=== PATIENT | female | born 1955 | race Caucasian/White ===

== ENCOUNTER 2016-09-14 06:25 | Day surgery (SDC) | payer BC ==
[2016-09-09 10:01] VITALS: BMI 24.2
[~2016-09-14 06:25] MED LIST: ALPRAZolam 0.25 MG TAB PO PRN; ALPRAZolam 0.5 MG TAB PO PRN; ASPIRIN 325 MG TAB PO STA; ATORVASTATIN 80 MG TAB PO STA; NITROGLYCERIN SL TABS 0.4 MG TAB SUBLINGUAL PRN; SODIUM CHLORIDE 0.9% 1,000 ML in EMPTY BAG 1 BAG IV ONE
[2016-09-14 07:17] VITALS: PULSE 64; RESP 20; TEMP 98
[2016-09-14] MEDS ORDERED: METOPROLOL TARTRATE 5 MG/5 ML VIAL IVP ONE ×2 (07:25→07:30)
[2016-09-14] MEDS ORDERED: MIDAZOLAM 2 MG/2 ML VIAL IVP ONE (07:33)
[2016-09-14] MEDS ORDERED: fentaNYL (PF) 50 MCG/ML 2 ML AMP IV ONE (07:35)
[2016-09-14] MEDS ORDERED: LIDOCAINE 2% INJ 20 MG/ML SQ ONE (07:38)
[2016-09-14] MEDS ORDERED: IOHEXOL 350 MG/ML 100 ML BOTTLE INJ ONE (07:51)
[2016-09-14] MEDS ORDERED: RX INFO: IV CONTRAST WAS GIVEN 1 EACH MISC MISCELLANE PRN (08:08)
--- NOTE | 2016-09-14 08:08 | P.PCN ---
Date of Procedure: 09/14/16 Preoperative Diagnosis: Unstable angina Postoperative Diagnosis: Normal coronary arteries Procedure(s) Performed: Left heart catheterization and left ventriculography Description of Procedure: HISTORY: This is a 61-year-old female with history of hypertensive cardiac vascular disease and hyperlipidemia who was recently seen in the office with complaints of prolonged chest pain relieved with nitroglycerin. Her EKGs did not reveal any acute changes. Because of recurrent chest pains relieved with nitroglycerin, patient is advised to have a cardiac catheterization or a stress test for definitive diagnosis. Patient preferred to have a cardiac catheterization. CONSENT:I have discussed the risks, benefits and alternative therapies for the above-mentioned procedure and for both sedation/analgesia as well as necessary blood product administration, if indicated, as they pertain to this patient. The patient has indicated understanding and acceptance of the risks and procedures discussed. PROCEDURE: Patient was brought to the lab in a fasting state. Patient was given some IV sedation. The right groin is infiltrated with lidocaine and right femoral artery was entered using Seldinger technique. A 6-[place] catheter was left in place and selective coronary arteriography and left ventriculography was performed. Patient tolerated the procedure well. Femoral angiogram was performed and Angio-Seal was applied for hemostasis. No immediate complications were noted and patient was transferred to [facility] in a stable condition HEMODYNAMICS: The aortic pressure is 140/70. Left ankle end-diastolic pressure is 20. There was no gradient across the aortic valve SELECTIVE CORONARY ARTERIOGRAPHY: LEFT MAIN: Short and divides immediately into left anterior descending and circumflex. THE LEFT ANTERIOR DESCENDING CORONARY ARTERY: This is a good caliber vessel which wraps around the apex. It gives rise to several septal and diagonal branches. There is mild catheter induced spasm in the proximal LAD but otherwise no significant occlusive disease THE LEFT CIRCUMFLEX AND IS CORONARY ARTERY: This is a moderate caliber vessel and free of any occlusive disease THE RIGHT CORONARY ARTERY: This is a dominant vessel and tortuous in its course. Gives rise good-sized COLLEEN and PLV. Free of any occlusive disease. LEFT VENTRICULOGRAPHY: This was performed 30 right and [place] but projection which revealed normal-sized cardiac silhouette with good systolic function. FINAL IMPRESSION: Normal coronary arteries. Normal LV function PLAN: Maximum medical therapy PROGNOSIS: Fair
[2016-09-14] MEDS ORDERED: SODIUM CHLORIDE 0.9% 1,000 ML IV SCH (08:15)
[2016-09-14 14:27] VITALS: BP 147/79
== END 2016-09-14 14:10 | disposition home or self-care (01) ==
LOC: CATHCVL 06:25
PROVIDERS: ATTEND Internal Medicine Cardiovascular Disease
DX: I25.110 Atherosclerotic heart disease of native coronary artery with unstable angina pectoris (principal); I11.9 Hypertensive heart disease without heart failure; I73.9 Peripheral vascular disease, unspecified; E78.5 Hyperlipidemia, unspecified; E78.00 Pure hypercholesterolemia, unspecified; Z82.49 Family history of ischemic heart disease and other diseases of the circulatory system; Z79.899 Other long term (current) drug therapy; Z87.891 Personal history of nicotine dependence
CPT/HCPCS: 93458

== ENCOUNTER → 2017-03-18 | Outpatient (CLI) | payer BC ==
--- NOTE | 2017-03-21 10:17 | MM ---
Reason for exam: screening (asymptomatic). Last mammogram was performed 1 year ago. History: Patient is postmenopausal, has history of other cancer at age 55, and is nulliparous. Family history of breast cancer in mother at age 63. 2 excisional biopsies of the right breast. Physical Findings: A clinical breast exam by your physician is recommended on an annual basis and results should be correlated with mammographic findings. MG Screening Mammo w CAD Bilateral CC and MLO view(s) were taken. Prior study comparison: March 03, 2016, bilateral MG screening mammo w CAD. February 04, 2015, bilateral MG screening mammo w CAD. The breast tissue is extremely dense which could obscure a lesion on mammography. There is no discrete abnormality. No significant changes when compared with prior studies. ASSESSMENT: Negative, BI-RAD 1 RECOMMENDATION: Routine screening mammogram of both breasts in 1 year.
== END | disposition home or self-care (01) ==
LOC: RADMAMWWP 07:20
PROVIDERS: ATTEND Family Medicine
DX: Z12.31 Encounter for screening mammogram for malignant neoplasm of breast (principal); Z80.3 Family history of malignant neoplasm of breast

== ENCOUNTER → 2017-04-26 | Outpatient (CLI) | payer BC ==
--- NOTE | 2017-04-26 09:53 | US ---
EXAMINATION TYPE: US abdomen complete DATE OF EXAM: 04/26/2017 COMPARISON: NONE CLINICAL HISTORY: R19.07 Generalized intra-abdominal and pelvic swel. EXAM MEASUREMENTS: Liver Length: 10.3 cm Gallbladder Wall: 0.2 cm CBD: 0.5 cm Spleen: 9.6 cm Right Kidney: 10.6 x 4.4 x 5.5 cm Left Kidney: 11.0 x 5.3 x 4.4 cm Pancreas: wnl Liver: wnl Gallbladder: wnl Evidence for sonographic Collins's sign: no CBD: wnl Spleen: wnl Right Kidney: wnl Left Kidney: Superior pole obscured by bowel gas Upper IVC: wnl Abd Aorta: Bifurcation obscured by overlying bowel gas The liver is homogenous. The intrahepatic portion of the IVC and proximal abdominal aorta are within normal limits. There is no evidence of cholelithiasis. Common bile duct is unremarkable. The visu alized portions of the pancreas are homogenous. The spleen is unremarkable. Kidneys are symmetric a nd free of hydronephrosis. No renal lesions are seen. IMPRESSION: No discrete abnormality appreciated.
== END | disposition home or self-care (01) ==
LOC: RADUSWWP 08:57
PROVIDERS: ATTEND Family Medicine
DX: R19.07 Generalized intra-abdominal and pelvic swelling, mass and lump (principal)
CPT/HCPCS: 76700

== ENCOUNTER 2018-02-01 08:31 | Inpatient (IN) | payer BC ==
[2018-02-01] MEDS ORDERED: DILTIAZEM 5 MG/1 ML (25ML VIAL) IV ONE (09:55)
[2018-02-01] MEDS ORDERED: DILTIAZEM 5 MG/ML 5 ML VIAL ONE (09:55)
[2018-02-01] MEDS ORDERED: SODIUM CHLORIDE 0.9% 1,000 ML BAG ONE (09:55)
[2018-02-01] MEDS ORDERED: SODIUM CHLORIDE 0.9% 100 ML BAG ONE (09:55)
[2018-02-01 13:43] LABS: D-Dimer <0.17 mg/L FEU (<0.60); Partial Thromboplastin Time 26.2 sec (22.0-30.0); Prothrombin Time 9.7 sec (9.0-12.0)
[2018-02-01 13:57] LABS: Basophils # (A) 0.1 k/uL (0-0.2); Basophils % (A) 1 %; Eosinophils # (A) 0.1 k/uL (0-0.7); Eosinophils % (A) 1 %; HCT 44.6 % (34.0-46.0); HGB 15.5 gm/dL (11.4-16.0); Lymphocytes # (A) 1.8 k/uL (1.0-4.8); Lymphocytes % (A) 20 %; MCH 31.5 pg (25.0-35.0); MCHC 34.7 g/dL (31.0-37.0); MCV 90.7 fL (80.0-100.0); Mean Platelet Volume 6.9; Monocytes # (A) 0.6 k/uL (0-1.0); Monocytes % (A) 6 %; Neutrophils # (A) 6.3 k/uL (1.3-7.7); Neutrophils % (A) 70 %; Platelet Count 258 k/uL (150-450); RBC 4.92 m/uL (3.80-5.40); RDW 13.2 % (11.5-15.5); WBC 8.9 k/uL (3.8-10.6)
[2018-02-01 15:07] LABS: ALT 44 U/L (9-52); AST 31 U/L (14-36); Albumin 4.9 g/dL (3.5-5.0); Alkaline Phosphatase 95 U/L (38-126); Anion Gap 13 mmol/L; Blood Urea Nitrogen 23 mg/dL (7-17); Carbon Dioxide 23 mmol/L (22-30); Chloride 105 mmol/L (98-107); Glucose 158 mg/dL (74-99); Magnesium 2.2 mg/dL (1.6-2.3); Phosphorus 3.1 mg/dL (2.5-4.5); Potassium 4.6 mmol/L (3.5-5.1); Sodium 141 mmol/L (137-145); Total Bilirubin 0.8 mg/dL (0.2-1.3); Total Protein 7.3 g/dL (6.3-8.2)
[2018-02-01 15:08] LABS: Creatine Kinase 57 U/L (30-135); Troponin I <0.012 ng/mL (0.000-0.034)
[2018-02-01 15:34] LABS: T4, Free (Free Thyroxine) 1.75 ng/dL (0.78-2.19)
--- NOTE | 2018-02-01 15:53 | XR ---
2 view chest x-ray HISTORY: Tachycardia, hypertension 2 views of the chest No comparisons There is no evident airspace disease, pneumothorax, or pleural effusion. Azygos fissure noted inciden tally. Patient is rotated. Cardiomediastinal silhouette, pulmonary vascularity and shmuel within normal limits. There are overlying cardiac leads. IMPRESSION: No acute cardiopulmonary disease.
[2018-02-01] MEDS: DILTIAZEM 50 MG in SODIUM CHLORIDE 0.9% 40 ML IV SCH (20:05)
[2018-02-01] MEDS: SODIUM CHLORIDE 0.9% 1,000 ML IV SCH (20:06)
[2018-02-01 20:41] LABS: Creatine Kinase MB 1.4 ng/mL (0.0-2.4)
[2018-02-01] MEDS ORDERED: HEPARIN SODIUM,PORCINE 5,000 UNIT/ML 1 ML VIAL IV PRN (22:18)
[2018-02-01] MEDS ORDERED: HEPARIN SODIUM,PORCINE 5,000 UNIT/ML 1 ML VIAL IV ONE (22:18)
[2018-02-01] MEDS ORDERED: HEPARIN SOD,PORK IN 0.45% NACL 25,000 UNIT in 0.45% NACL 1 500ML.BAG IV SCH (22:30)
[2018-02-02] MEDS ORDERED: HEPARIN SODIUM,PORCINE 5,000 UNIT/ML 1 ML VIAL SQ SCH
[2018-02-02 03:14] LABS: Creatine Kinase 35 U/L (30-135)
[2018-02-02 03:23] LABS: Creatine Kinase MB 1.2 ng/mL (0.0-2.4); Troponin I <0.012 ng/mL (0.000-0.034)
[2018-02-02] MEDS: SODIUM CHLORIDE 0.9% 1,000 ML IV SCH ×3 (05:13→15:34)
[2018-02-02] MEDS: DILTIAZEM 50 MG in SODIUM CHLORIDE 0.9% 40 ML IV SCH ×3 (05:14→22:47)
[2018-02-02] MEDS: LEVOTHYROXINE 112 MCG TAB PO SCH (06:08)
[2018-02-02 06:27] LABS: Basophils # (A) 0.1 k/uL (0-0.2); Basophils % (A) 1 %; Eosinophils # (A) 0.1 k/uL (0-0.7); Eosinophils % (A) 1 %; HCT 41.3 % (34.0-46.0); HGB 14.5 gm/dL (11.4-16.0); Lymphocytes % (A) 26 %; MCH 31.6 pg (25.0-35.0); MCHC 35.1 g/dL (31.0-37.0); MCV 90.2 fL (80.0-100.0); Monocytes # (A) 0.5 k/uL (0-1.0); Monocytes % (A) 6 %; Neutrophils # (A) 5.2 k/uL (1.3-7.7); Neutrophils % (A) 65 %; Platelet Count 193 k/uL (150-450); RBC 4.58 m/uL (3.80-5.40); RDW 13.6 % (11.5-15.5)
[2018-02-02 06:44] LABS: Blood Urea Nitrogen 10 mg/dL (7-17); Calcium 9.9 mg/dL (8.4-10.2); Carbon Dioxide 23 mmol/L (22-30); Chloride 110 mmol/L (98-107); Glucose 120 mg/dL (74-99); Potassium 4.1 mmol/L (3.5-5.1)
[2018-02-02 06:56] LABS: Anion Gap 10 mmol/L; Sodium 143 mmol/L (137-145)
[2018-02-02] MEDS: ASPIRIN 81 MG PO SCH (08:37)
[2018-02-02] MEDS ORDERED: NON-FORMULARY DRUG (Omega-3 Fatty Acids/Fish Oil [Fish Oil 1,000 Mg Softgel] 1 EACH) PO SCH (09:00)
[2018-02-02] MEDS ORDERED: NON-FORMULARY DRUG (Krill Oil [Krill Oil] 500 MG) PO SCH (09:00)
--- NOTE | 2018-02-02 09:19 | P.HPIM ---
History of Present Illness H&P Date: 02/01/18 62-year-old female who presented to the emergency room with a chief complaint of chest discomfort and a vague complaint of "just not feeling right" . Patient denied shortness of breath or cough. Denied recent URI. Denied nausea or vomiting. Denied lightheadedness or dizziness. The patient underwent cardiac catheterization in September [address] Nelson which revealed normal coronary arteries and normal LV function. The patient has a history of thyroid cancer with thyroidectomy and radiation treatment. The patient is a former cigarette smoker and quit smoking in 1997 after smoking for 20 years. The patient reports daily alcohol use and reports drinking 2 vodka drinks a night. Chest x-ray was performed which was negative for an acute process. Twelve-lead EKG revealed atrial fibrillation with rapid ventricular response. Laboratory results revealed WBC 8.9. Hemoglobin 15.5. Platelet count 250. INR 1.0. D-dimer less than 0.17. Sodium 141. Potassium 4.6. BUN 23. Creatinine 0.70. Glucose 158. Magnesium 2.2. Troponins negative 3. TSH 0.043. Free T4 1 0.75. The patient was placed on a Cardizem drip and a heparin drip. The patient was admitted to the hospital under the care of Dr. Mcmahon. Consultations were placed to cardiology. Review of Systems Those systems with pertinent positive or pertinent negative responses have been documented in the HPI Past Medical History Past Medical History: Cancer, Chest Pain / Angina, Thyroid Disorder Additional Past Medical History / Comment(s): hx. thyroid cancer 2010-had radiation after surgery, see Dr Nelson H & P History of Any Multi-Drug Resistant Organisms: None Reported Past Surgical History: Hysterectomy, Joint Replacement, Orthopedic Surgery, Tonsillectomy Additional Past Surgical History / Comment(s): thyroidectomy, left knee replaced , left wrist ORIF Past Anesthesia/Blood Transfusion Reactions: No Reported Reaction Smoking Status: Former smoker - Past Family History Mother Family Medical History: Cancer Father Family Medical History: Cancer Medications and Allergies Home Medications Medication Instructions Recorded Confirmed Type Aspirin 81 mg PO DAILY 09/09/16 02/01/18 History Levothyroxine Sodium [Synthroid] 112 mcg PO DAILY 09/09/16 02/01/18 History [place]-3 Fatty Acids/Fish Oil [Fish 1 each PO DAILY 09/09/16 02/01/18 History Oil 1,000 mg Softgel] Krill Oil 500 mg PO DAILY 02/01/18 02/01/18 History Apixaban [Eliquis] 5 mg PO BID #60 tab 02/03/18 Rx Allergies Allergy/AdvReac Type Severity Reaction Status Date / Time No Known Allergies Allergy Verified 02/01/18 11:40 Physical Exam GENERAL: This is a 62-year-old in no apparent distress at the time of examination. Pleasant and cooperative. HEENT: Head is atraumatic, normocephalic. Pupils are equal, round, and reactive to light. Sclerae anicteric. Conjunctivae are clear. Mucus membranes of the mouth are moist. Neck is supple. RESPIRATORY: Clear to ausculation. No wheezes, rales, or rhonchi. No use of accessory muscles. Patient maintaining oxygen saturation greater than 92%. CARDIOVASCULAR: Irregular rate and rhythm. Tachycardic. statistician theoretical reveals A. fib with RVR. S1 and S2 noted. No systolic or diastolic murmur auscultated. No JVD noted. No S3 or S4 noted. GASTROINTESTINAL: No distention noted. Abdomen soft and round. Normal active bowel sounds auscultated x 4 quadrants. INTEGUMENTARY: No cyanosis. No jaundice. No rashes noted. No cellulitis noted. EXTREMITIES: 2+ peripheral pulses. No evidence of peripheral edema. No calf tenderness noted. NEUROLOGIC: Cranial nerves II-XII intact. PSYCHIATRIC: Awake, alert, and oriented X 3. Appropriate affect. Intact judgement and insight. Results CBC & Chem 7: 02/02/18 05:57 02/02/18 05:57 Assessment and Plan Plan: ASSESSMENT: New onset atrial fibrillation with rapid ventricular response History of thyroid cancer s/p thyroidectomy and radiation treatment History of nicotine dependence, in remission, patient quit smoking in 1997 after smoking for 20 years Daily alcohol use, patient reports consuming two alcoholic drinks per night PLAN: Cardiology on consult. Appreciate recommendations and input Continue Cardizem drip and heparin drip per cardiology Continue to monitor telemetry Home meds as appropriate Monitor labs GI prophylaxis: Protonix 40 mg PO Daily DVT prophylaxis: Patient currently on heparin drip Monitor vital signs and address as appropriate Discharge planning: Patient to return home when stable Further recommendations pending patient's course Nurse practitioner note has been reviewed by physician. Signing provider agrees with the documented findings, assessment, and plan of care.
[2018-02-02] MEDS ORDERED: PROPAFENONE 150 MG TAB PO STA (10:23)
--- NOTE | 2018-02-02 11:03 | CONS ---
CONSULTATION CHIEF COMPLAINT: Palpitations. 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 While at work, she had palpitations and was found to be in a atrial fibrillation and sent to hospital. She has been treated with intravenous heparin and IV Cardizem. At the time of my evaluation, her heart rate is well controlled and she is otherwise stable and free of symptoms. The patient has history of ETOH abuse. She has 2 alcohol drinks every day. Her TSH is low but the T4 is within normal limits. PAST MEDICAL HISTORY: Negative for hypertension, diabetes, congestive heart failure, cardiomyopathy, ischemic heart disease or prior CVA. It is significant for hypothyroidism. MEDICATIONS: At home included fish oil, Krill oil, Synthroid, and aspirin. ALLERGIES: There are no known drug allergies. FAMILY HISTORY: Negative for premature coronary artery disease. SOCIAL HISTORY: Negative for current smoking, EtOH abuse, or drug abuse. REVIEW OF SYSTEMS: HEENT is unremarkable. CARDIAC: As described above. RESPIRATORY: Negative. GI: Negative. GENITOURINARY: Negative. ALLERGY/IMMUNOLOGY: Negative. SKIN: Negative. MUSCULOSKELETAL: Negative. ENDOCRINE: Negative. CONSTITUTIONAL: Negative. ONCOLOGICAL: Negative. Rest of the system review is not relevant. PHYSICAL EXAM: She is comfortable at rest. Vital signs are stable. There is no jugular venous distention. Carotid upstroke is normal. There is no bruit. Chest exam reveals diminished air entry at the bases. Heart exam reveals first and second heart sounds. No gallop. Irregular rhythm. No murmur. Abdomen is soft, nontender. Exam of extremities did not reveal any edema. Peripheral pulses are felt, LABS: Show that the D-dimer is normal. Hemoglobin is 14.5, platelet count is 193. Potassium is 4.1. Three sets of tropes are negative. Free T4 is normal. TSH is 0.043. ASSESSMENT: Persistent atrial fibrillation with poorly controlled ventricular rate. PLAN: I am going to talk to Dr. Nelson who has performed a cardiac catheterization on her a year ago which was normal. I will ask him to do a BRIELLE cardioversion on her. I will obtain a 2D echo in the meantime. MMODL / IJN: [id number] /
--- NOTE | 2018-02-02 12:51 | ECHOF ---
Referral Reason:afib MEASUREMENTS -------- HEIGHT: 165.1 cm WEIGHT: 64.0 kg BP: 126/90 IVSd: 0.9 cm (0.6 - 1.1) LVIDd: 4.1 cm (3.9 - 5.3) LVPWd: 1.2 cm (0.6 - 1.1) IVSs: 1.2 cm LVIDs: 3.1 cm LVPWs: 1.4 cm LA Diam: 3.0 cm (2.7 - 3.8) LAESV Index (A-L): 29.13 ml/m Ao Diam: 2.8 cm (2.0 - 3.7) AV Cusp: 1.7 cm (1.5 - 2.6) LA Diam: 2.9 cm (2.7 - 3.8) MV EXCURSION: 21.996 mm (> 18.000) MV EF SLOPE: 152 mm/s (70 - 150) EPSS: 0.2 cm MV E Kwabena: 0.66 m/s MV DecT: 120 ms MV A Kwabena: 0.05 m/s MV E/A Ratio: 13.41 RAP: 5.00 mmHg RVSP: 20.32 mmHg FINDINGS -------- Atrial fibrillation. This was a technically good study. LV size, wall thickness and systolic function are normal, with an EF greater than 55%. The left kath tricular size is normal. The right ventricle is normal in size. The left atrial size is normal. The right atrial size is normal. The aortic valve is trileaflet, and appears structurally normal. No aortic stenosis or regurgitation. Mild mitral regurgitation is present. Mild tricuspid regurgitation present. There is no evidence of pulmonary hypertension. The right v entricular systolic pressure, as measured by Doppler, is 20.32mmHg. There is no pulmonic regurgitation present. The aortic root size is normal. There is no pericardial effusion. CONCLUSIONS -------- 1. LV size, wall thickness and systolic function are normal, with an EF greater than 55%. 2. The left ventricular size is normal. 3. The right ventricle is normal in size. 4. The left atrial size is normal. 5. The right atrial size is normal. 6. The aortic valve is trileaflet, and appears structurally normal. No aortic stenosis or regurgitati on. 7. Mild mitral regurgitation is present. 8. Mild tricuspid regurgitation present. 9. There is no evidence of pulmonary hypertension. 10. The right ventricular systolic pressure, as measured by Doppler, is 20.32mmHg. 11. There is no pulmonic regurgitation present. 12. The aortic root size is normal. 13. There is no pericardial effusion. OD GRINDER OPERATOR: Rosi Winters RDCS
--- NOTE | 2018-02-02 14:22 | P.PN ---
Subjective Progress Note Date: 02/02/18 62-year-old who presented to the emergency room with a chief complaint of chest discomfort and a vague complaint of "just not feeling right" . Patient denied shortness of breath or cough. Denied recent URI. Denied nausea or vomiting. Denied lightheadedness or dizziness. The patient underwent cardiac catheterization in September [address] Nelson which revealed normal coronary arteries and normal LV function. The patient has a history of thyroid cancer with thyroidectomy and radiation treatment. The patient is a former cigarette smoker and quit smoking in 1997 after smoking for 20 years. The patient reports daily alcohol use and reports drinking 2 vodka drinks a night. Chest x-ray was performed which was negative for an acute process. Twelve-lead EKG revealed atrial fibrillation with rapid ventricular response. Laboratory results revealed WBC 8.9. Hemoglobin 15.5. Platelet count 250. INR 1.0. D-dimer less than 0.17. Sodium 141. Potassium 4.6. BUN 23. Creatinine 0.70. Glucose 158. Magnesium 2.2. Troponins negative 3. TSH 0.043. Free T4 1 0.75. The patient was placed on a Cardizem drip and a heparin drip. The patient was admitted to the hospital under the care of Dr. Mcmahon. Consultations were placed to cardiology. 02/02/2018 Patient seen and examined at the bedside. Patient remains in a-fib. Rate is controlled. Patient is scheduled for BRIELLE tomorrow. She remains on a Cardizem drip and Heparin drip. Patient denies shortness of breath. Denies cough. Denies chest pain or pressure. Objective - Vital Signs Vital signs: Vital Signs Temp 97.8 F 02/02/18 08:30 Pulse 87 02/02/18 08:30 Resp 16 02/02/18 08:30 BP 144/74 02/02/18 08:30 Pulse Ox 95 02/02/18 08:30 Intake & Output 02/01/18 02/02/18 02/02/18 18:59 06:59 18:59 Intake Total 45.75 Balance 45.75 Weight 64.1 kg Intake: Intake, IV Titration 45.75 Amount Diltiazem 50 mg In Sodium 45.75 Chloride 0.9% 40 ml @ 5 MG/HR 5 mls/hr IV .Q10H [facility] Rx#:[id number] Other: Voiding Method Toilet # Voids 1 - Exam GENERAL: This is a 62-year-old in no apparent distress at the time of examination. Pleasant and cooperative. HEENT: Head is atraumatic, normocephalic. Pupils are equal, round, and reactive to light. Sclerae anicteric. Conjunctivae are clear. Mucus membranes of the mouth are moist. Neck is supple. RESPIRATORY: Clear to ausculation. No wheezes, rales, or rhonchi. No use of accessory muscles. Patient maintaining oxygen saturation greater than 92%. CARDIOVASCULAR: Irregular rate and rhythm. network management specialist reveals A. fib. S1 and S2 noted. No systolic or diastolic murmur auscultated. No JVD noted. No S3 or S4 noted. GASTROINTESTINAL: No distention noted. Abdomen soft and round. Normal active bowel sounds auscultated x 4 quadrants. INTEGUMENTARY: No cyanosis. No jaundice. No rashes noted. No cellulitis noted. EXTREMITIES: 2+ peripheral pulses. No evidence of peripheral edema. No calf tenderness noted. NEUROLOGIC: Cranial nerves II-XII intact. PSYCHIATRIC: Awake, alert, and oriented X 3. Appropriate affect. Intact judgement and insight. - Labs CBC & Chem 7: 02/02/18 05:57 02/02/18 05:57 Labs: Abnormal Lab Results - Last 24 Hours (Table) 02/01/18 02/02/18 02/02/18 Range/Units 08:59 05:57 05:57 APTT 61.2 H (22.0-30.0) sec Chloride 110 H (98-107) mmol/L BUN 23 H (7-17) mg/dL Glucose 158 H 120 H (74-99) mg/dL Calcium 11.0 H (8.4-10.2) mg/dL TSH 0.043 L (0.465-4.680) mIU/L Assessment and Plan Plan: ASSESSMENT: New onset atrial fibrillation with rapid ventricular response History of thyroid cancer s/p thyroidectomy and radiation treatment History of nicotine dependence, in remission, patient quit smoking in 1997 after smoking for 20 years Daily alcohol use, patient reports consuming two alcoholic drinks per night PLAN: Cardiology on consult. Appreciate recommendations and input Patient to undergo BRIELLE cardioversion Continue to monitor telemetry Home meds as appropriate Monitor labs GI prophylaxis: Protonix 40 mg PO Daily DVT prophylaxis: Patient currently on heparin drip Monitor vital signs and address as appropriate Discharge planning: Patient to return home when stable Further recommendations pending patient's course Nurse practitioner note has been reviewed by physician. Signing provider agrees with the documented findings, assessment, and plan of care.
[2018-02-02] MEDS: APIXABAN 5 MG TAB PO SCH ×2 (14:25→21:32)
[2018-02-02] MEDS: PROPAFENONE 150 MG TAB PO SCH ×2 (15:45→21:32)
[2018-02-03] MEDS: SODIUM CHLORIDE 0.9% 1,000 ML IV SCH ×2 (06:01→09:13)
[2018-02-03] MEDS: LEVOTHYROXINE 112 MCG TAB PO SCH (06:01)
[2018-02-03] MEDS: ASPIRIN 81 MG PO SCH (08:02)
[2018-02-03] MEDS: APIXABAN 5 MG TAB PO SCH (08:02)
[2018-02-03] MEDS: PROPAFENONE 150 MG TAB PO SCH (08:02)
[2018-02-03] MEDS ORDERED: PROPAFENONE 150 MG TAB PO PRN (09:50)
[2018-02-03 11:10] VITALS: BP 158/75; PULSE 74; RESP 16; TEMP 97.3
--- NOTE | 2018-02-03 12:28 | P.DS ---
Providers Date of admission: 02/01/18 11:39 Expected date of discharge: 02/03/18 Attending physician: Shay Mcmahon Consults: 02/01/18 19:30 Consult Physician Routine Consulting Provider: Yehuda Layton Consult Reason/Comments: new afib Do you want consulting provider notified?: Yes Placement Type Exists?: Yes Primary care physician: [facility] Course: 62-year-old who presented to the emergency room with a chief complaint of chest discomfort and a vague complaint of "just not feeling right" . Patient denied shortness of breath or cough. Denied recent URI. Denied nausea or vomiting. Denied lightheadedness or dizziness. The patient underwent cardiac catheterization in September [address] Nelson which revealed normal coronary arteries and normal LV function. The patient has a history of thyroid cancer with thyroidectomy and radiation treatment. The patient is a former cigarette smoker and quit smoking in 1997 after smoking for 20 years. The patient reports daily alcohol use and reports drinking 2 vodka drinks a night. Chest x-ray was performed which was negative for an acute process. Twelve-lead EKG revealed atrial fibrillation with rapid ventricular response. Laboratory results revealed WBC 8.9. Hemoglobin 15.5. Platelet count 250. INR 1.0. D-dimer less than 0.17. Sodium 141. Potassium 4.6. BUN 23. Creatinine 0.70. Glucose 158. Magnesium 2.2. Troponins negative 3. TSH 0.043. Free T4 1 0.75. The patient was admitted to the hospital under the care of Dr. Mcmahon. Consultations were placed to cardiology. The patient was placed on a Cardizem drip and a heparin drip. She was also started on Rythmol per cardiology. She was scheduled for BRIELLE with cardioversion but she converted to sinus mechanism and procedure was cancelled. Her cardizem drip and heparin drip have since been discontinued. She was started on Eliquis 5mg PO BID for anticoagulation. The patient had an isolated episode of hypertension, but otherwise blood pressure has been stable with SBP 120-130s. Blood pressure to be monitored on an outpatient basis. She was prescribed Rythmol PRN for when she feels like she is having episodes of atrial fibrillation. Patient was deemed stable for discharge. She is to follow up on an outpatient basis with her PCP and manager costing. Discharge Diagnosis: New onset atrial fibrillation with rapid ventricular response, since converted to sinus mechanism History of thyroid cancer s/p thyroidectomy and radiation treatment History of nicotine dependence, in remission, patient quit smoking in 1997 after smoking for 20 years Daily alcohol use, patient reports consuming two alcoholic drinks per night Nurse practitioner note has been reviewed by physician. Signing provider agrees with the documented findings, assessment, and plan of care. Plan - Discharge Summary Discharge Rx Participant: No New Discharge Prescriptions: New Apixaban [Eliquis] 5 mg PO BID #60 tab Continue Aspirin 81 mg PO DAILY Levothyroxine Sodium [Synthroid] 112 mcg PO DAILY [place]-3 Fatty Acids/Fish Oil [Fish Oil 1,000 mg Softgel] 1 each PO DAILY Krill Oil 500 mg PO DAILY Discharge Medication List Aspirin 81 mg PO DAILY 09/09/16 [History] Levothyroxine Sodium [Synthroid] 112 mcg PO DAILY 09/09/16 [History] [place]-3 Fatty Acids/Fish Oil [Fish Oil 1,000 mg Softgel] 1 each PO DAILY [History] Krill Oil 500 mg PO DAILY 02/01/18 [History] Apixaban [Eliquis] 5 mg PO BID #60 tab 02/03/18 [Rx] Follow up Appointment(s)/Referral(s): Mohan Macario MD [Primary Care Provider] - 02/10/18 10:45 am (Tuesday) Oscar Torres MD [STAFF PHYSICIAN] - 3 Weeks Activity/Diet/Wound Care/Special Instructions: Pts copay for Eliquis is $40/month, free month supply filled in OP pharmacy Discharge Disposition: HOME SELF-CARE
--- NOTE | 2018-02-03 12:48 | P.PN ---
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 She presented to the hospital with chest discomfort and just not feeling right. She underwent a cardiac catheterization in September [address] Nelson which revealed normal coronary arteries and normal LV function. He also has history of thyroid cancer with thyroidectomy and radiation treatment. She has a prior nicotine user, she quit in 1997. She does drink 2 glasses of vodka a night. On presentation here the patient was found to be in atrial fibrillation with a rapid ventricular response. Echo revealed normal left ventricular systolic function. Patient was given Rythmol yesterday converted over to normal sinus rhythm. Blood pressure 150/70 with a heart rate in the 70s, respirations 16, 96; room air. White blood cell count is normal, hemoglobin 14.5, platelet count 193. Sodium 143, potassium 4.1, BUN 10, creatinine 0.5. TSH level on admission 0.043. She feels well today, denies any palpitations, no chest discomfort. She states she just didn't sleep well through the night last night because of some issues with her roommate. Objective - Vital Signs Vital signs: Vital Signs Temp 97.3 F L 02/03/18 09:00 Pulse 74 02/03/18 09:00 Resp 16 02/03/18 09:00 BP 158/75 02/03/18 09:00 Pulse Ox 96 02/03/18 09:00 Intake & Output 02/02/18 02/03/18 02/03/18 18:59 06:59 18:59 Intake Total 1043.917 Balance 1043.917 Weight 64.7 kg Intake: Intake, IV Titration 445.917 Amount Diltiazem 50 mg In Sodium 45.917 Chloride 0.9% 40 ml @ 5 MG/HR 5 mls/hr IV .Q10H [facility] Rx#:[id number] Sodium Chloride 0.9% 1, 400 000 ml @ 100 mls/hr IV . Q10H [facility] Rx#:[id number] Oral 598 Other: Voiding Method Toilet Toilet # Voids 3 1 1 # Bowel Movements 0 - Exam PHYSICAL EXAMINATION: GENERAL: 62-year-old female in no apparent distress at the time of my examination HEENT: Head is atraumatic, normocephalic. Pupils equal, round. Sclera anicteric. Conjunctiva are clear. Mucous membranes of the mouth are moist. Neck is supple. There is no elevated jugular venous pressure.] bruit is heard. HEART EXAMINATION: normal. No murmur or gallop heard.] CHEST EXAMINATION:[ Lungs are clear to auscultation and precussion. No chest wall tenderness is noted on palpation or with deep breathing.] ABDOMEN: [ Soft, nontender. Bowel sounds are heard. No organomegaly noted]. EXTREMITIES:[ 2+ peripheral pulses with no evidence of peripheral edema and no calf tenderness noted]. NEUROLOGIC [patient is awake, alert and oriented ?-3.] . - Labs CBC & Chem 7: 02/02/18 05:57 02/02/18 05:57
== END 2018-02-03 11:07 | disposition home or self-care (01) | DRG 310 ==
LOC: EC 08:31 → 6SEL 11:39
PROVIDERS: ADMIT Family Medicine; ATTEND Family Medicine
DX: I48.1 Persistent atrial fibrillation (principal); E89.0 Postprocedural hypothyroidism; F10.10 Alcohol abuse, uncomplicated; F17.201 Nicotine dependence, unspecified, in remission; R03.0 Elevated blood-pressure reading, without diagnosis of hypertension; Z79.01 Long term (current) use of anticoagulants; Z79.82 Long term (current) use of aspirin; Z79.890 Hormone replacement therapy; Z85.850 Personal history of malignant neoplasm of thyroid; Z90.710 Acquired absence of both cervix and uterus; Z92.3 Personal history of irradiation; Z96.652 Presence of left artificial knee joint
CPT/HCPCS: 71046; 80048; 80053; 82550; 82553; 83735; 84100; 84439; 84443; 84484; 85025; 85379; 85610; 85730; 93005; 93306; 94760; 96365; 96366; 99285

== ENCOUNTER → 2018-03-21 | Outpatient (CLI) | payer BC ==
--- NOTE | 2018-03-28 10:08 | MM ---
Reason for exam: screening (asymptomatic). Last mammogram was performed 1 year ago. History: Patient is postmenopausal, has history of other cancer at age 55, and is nulliparous. Family history of breast cancer in mother at age 63. 2 excisional biopsies of the right breast. Physical Findings: A clinical breast exam by your physician is recommended on an annual basis and results should be correlated with mammographic findings. MG Screening Mammo w CAD Bilateral CC and MLO view(s) were taken. Prior study comparison: March 18, 2017, bilateral MG screening mammo w CAD. March 03, 2016, bilateral MG screening mammo w CAD. The breast tissue is heterogeneously dense. This may lower the sensitivity of mammography. There is no discrete abnormality. ASSESSMENT: Negative, BI-RAD 1 RECOMMENDATION: Routine screening mammogram of both breasts in 1 year.
== END | disposition home or self-care (01) ==
LOC: RADMAMWWP 07:33
PROVIDERS: ATTEND Family Medicine
DX: Z12.31 Encounter for screening mammogram for malignant neoplasm of breast (principal)
CPT/HCPCS: 77067

== ENCOUNTER 2018-10-18 12:31 | Emergency (ER) | payer BC, MEDICARE ==
[2018-10-18] MEDS ORDERED: SODIUM CHLORIDE 0.9% 500 ML 500 ML IV STA (12:36)
[2018-10-18] MEDS ORDERED: SODIUM CHLORIDE 0.9% 1,000 ML IV STA (12:36)
[2018-10-18 12:41] VITALS: RESP 18; TEMP 97.1
--- NOTE | 2018-10-18 12:43 | ED ---
General Adult HPI - General Stated complaint: Syncope Time Seen by Provider: 10/18/18 12:31 Source: RN notes reviewed - History of Present Illness Initial comments: This a 63-year-old female with past medical history significant for atrial fibrillation is on a blood thinner for this. Patient states last night she started feeling as though her A. fib was coming back she woke up this morning and felt like her heart rate was fast that she took denies to Rythmol. Patient went to work he started to work and she continued to have a very fast heart rate and she was given a beta silvio and she took that and after that she started feeling very lightheaded and her heart rate got down into the 40s so she came to the emergency department. While in the waiting room she did pass out for a short period of time but came around very quickly. Patient states she's never had any chest pain she has no shortness of breath or difficulty breathing she just felt extremely lightheaded and near syncopal. Patient denies any headache patient with numbness or focal weakness. His salicylate the patient down she stated she felt considerably better. Patient heart rate here was in the 70s. - Related Data Home Medications Medication Instructions Recorded Confirmed Aspirin 81 mg PO DAILY@1500 09/09/16 10/18/18 Levothyroxine Sodium [Synthroid] 112 mcg PO DAILY 09/09/16 10/18/18 Atorvastatin [Lipitor] 40 mg PO HS 10/18/18 10/18/18 Carvedilol [Coreg] 25 mg PO ONCE PRN 10/18/18 10/18/18 Lisinopril [Zestril] 5 mg PO DAILY 10/18/18 10/18/18 Propafenone [Rythmol] 300 mg PO DAILY PRN 10/18/18 10/18/18 Previous Rx's Medication Instructions Recorded Apixaban [Eliquis] 5 mg PO BID #60 tab 02/03/18 Allergies Allergy/AdvReac Type Severity Reaction Status Date / Time No Known Allergies Allergy Verified 10/18/18 13:18 Review of Systems ROS Statement: Those systems with pertinent positive or pertinent negative responses have been documented in the HPI. ROS Other: All systems not noted in ROS Statement are negative. Past Medical History Past Medical History: Cancer, Chest Pain / Angina, Thyroid Disorder Additional Past Medical History / Comment(s): hx. thyroid cancer 2010-had radiation after surgery, see Dr Nelson H & P History of Any Multi-Drug Resistant Organisms: None Reported Past Surgical History: Hysterectomy, Joint Replacement, Orthopedic Surgery, Tonsillectomy Additional Past Surgical History / Comment(s): thyroidectomy, left knee replaced, left wrist ORIF Past Anesthesia/Blood Transfusion Reactions: No Reported Reaction Smoking Status: Former smoker - Past Family History Mother Family Medical History: Cancer Additional Family Medical History / Comment(s): Mother had breast/brain/bone cancer. Father Family Medical History: Cancer Additional Family Medical History / Comment(s): Father had rectal, lung and esophageal cancer. General Exam - General Exam Comments Initial Comments: GENERAL: Patient is well-developed and well-nourished. Patient is nontoxic and well- hydrated and is in mild distress. ENT: Neck is soft and supple. No significant lymphadenopathy is noted. Oropharynx is clear. Moist mucous membranes. Neck has full range of motion without eliciting any pain. EYES: The sclera were anicteric and conjunctiva were pink and moist. Extraocular movements were intact and pupils were equal round and reactive to light. Eyelids were unremarkable. PULMONARY: Unlabored respirations. Good breath sounds bilaterally. No audible rales rhonchi or wheezing was noted. CARDIOVASCULAR: There is a regular rate and rhythm without any murmurs gallops or rubs. ABDOMEN: Soft and nontender with normal bowel sounds. SKIN: Skin is clear with no lesions or rashes and otherwise unremarkable. NEUROLOGIC: Patient is alert and oriented x3. Cranial nerves II through XII are grossly intact. Motor and sensory are also intact. Normal speech, volume and content. Symmetrical smile. MUSCULOSKELETAL: Normal extremities with adequate strength and full range of motion. LYMPHATICS: No significant lymphadenopathy is noted PSYCHIATRIC: Normal psychiatric evaluation. Course Vital Signs 10/18/18 10/18/18 12:37 13:06 Temperature 97.1 F L Pulse Rate 68 Respiratory 18 Rate Blood Pressure 84/53 84/59 Medical Decision Making - Medical Decision Making EKG shows normal sinus rhythm at 73 bpm UT interval is 158 QRSs 110 QT interval 398 QTC is 438. Patient's EKG shows no ST segment elevation or depression or T- wave abnormalities noted. I did review an EKG that was done at her doctor's office and it did show atrial fibrillation at 153 beats a minute. Chest x-ray shows no acute abnormality. Patient has had no new symptoms while being in the emergency department. - Lab Data Result diagrams: 10/18/18 12:35 10/18/18 12:35 Lab Results 10/18/18 10/18/18 10/18/18 Range/Units 12:35 12:35 12:35 WBC 11.2 H (3.8-10.6) k/uL RBC 4.67 (3.80-5.40) m/uL Hgb 13.5 (11.4-16.0) gm/dL Hct 40.9 (34.0-46.0) % MCV 87.5 (80.0-100.0) fL MCH 28.8 (25.0-35.0) pg MCHC 33.0 (31.0-37.0) g/dL RDW 13.1 (11.5-15.5) % Plt Count 242 (150-450) k/uL Neutrophils % 66 % Lymphocytes % 24 % Monocytes % 7 % Eosinophils % 1 % Basophils % 1 % Neutrophils # 7.4 (1.3-7.7) k/uL Lymphocytes # 2.7 (1.0-4.8) k/uL Monocytes # 0.8 (0-1.0) k/uL Eosinophils # 0.1 (0-0.7) k/uL Basophils # 0.1 (0-0.2) k/uL PT 10.6 (9.0-12.0) sec INR 1.0 (<1.2) APTT 23.3 (22.0-30.0) sec Sodium 140 (137-145) mmol/L Potassium 5.1 (3.5-5.1) mmol/L Chloride 111 H (98-107) mmol/L Carbon Dioxide 20 L (22-30) mmol/L Anion Gap 9 mmol/L BUN 14 (7-17) mg/dL Creatinine 0.81 (0.52-1.04) mg/dL Est GFR (CKD-EPI)AfAm 89 (>60 ml/min/1.73 sqM) Est GFR (CKD-EPI)NonAf 77 (>60 ml/min/1.73 sqM) Glucose 193 H (74-99) mg/dL Calcium 10.5 H (8.4-10.2) mg/dL Magnesium 2.1 (1.6-2.3) mg/dL Total Bilirubin 0.8 (0.2-1.3) mg/dL AST 28 (14-36) U/L ALT 56 H (9-52) U/L Alkaline Phosphatase 99 (38-126) U/L Troponin I (0.000-0.034) ng/mL Total Protein 6.6 (6.3-8.2) g/dL Albumin 4.3 (3.5-5.0) g/dL TSH 0.016 L (0.465-4.680) mIU/L Free T4 1.51 (0.78-2.19) ng/dL 10/18/18 Range/Units 12:35 WBC (3.8-10.6) k/uL RBC (3.80-5.40) m/uL Hgb (11.4-16.0) gm/dL Hct (34.0-46.0) % MCV (80.0-100.0) fL MCH (25.0-35.0) pg MCHC (31.0-37.0) g/dL RDW (11.5-15.5) % Plt Count (150-450) k/uL Neutrophils % % Lymphocytes % % Monocytes % % Eosinophils % % Basophils % % Neutrophils # (1.3-7.7) k/uL Lymphocytes # (1.0-4.8) k/uL Monocytes # (0-1.0) k/uL Eosinophils # (0-0.7) k/uL Basophils # (0-0.2) k/uL PT (9.0-12.0) sec INR (<1.2) APTT (22.0-30.0) sec Sodium (137-145) mmol/L Potassium (3.5-5.1) mmol/L Chloride (98-107) mmol/L Carbon Dioxide (22-30) mmol/L Anion Gap mmol/L BUN (7-17) mg/dL Creatinine (0.52-1.04) mg/dL Est GFR (CKD-EPI)AfAm (>60 ml/min/1.73 sqM) Est GFR (CKD-EPI)NonAf (>60 ml/min/1.73 sqM) Glucose (74-99) mg/dL Calcium (8.4-10.2) mg/dL Magnesium (1.6-2.3) mg/dL Total Bilirubin (0.2-1.3) mg/dL AST (14-36) U/L ALT (9-52) U/L Alkaline Phosphatase (38-126) U/L Troponin I <0.012 (0.000-0.034) ng/mL Total Protein (6.3-8.2) g/dL Albumin (3.5-5.0) g/dL TSH (0.465-4.680) mIU/L Free T4 (0.78-2.19) ng/dL Disposition Clinical Impression: Syncope, Atrial fibrillation with RVR Disposition: HOME SELF-CARE Condition: Good Is patient prescribed a controlled substance at d/c from ED?: No Referrals: None,Stated [REFERRING] - 1-2 days Time of Disposition: 14:24
[2018-10-18 12:57] LABS: Basophils # (A) 0.1 k/uL (0-0.2); Basophils % (A) 1 %; Eosinophils # (A) 0.1 k/uL (0-0.7); Eosinophils % (A) 1 %; HCT 40.9 % (34.0-46.0); HGB 13.5 gm/dL (11.4-16.0); Lymphocytes # (A) 2.7 k/uL (1.0-4.8); Lymphocytes % (A) 24 %; MCH 28.8 pg (25.0-35.0); MCV 87.5 fL (80.0-100.0); Mean Platelet Volume 8.1; Monocytes # (A) 0.8 k/uL (0-1.0); Monocytes % (A) 7 %; Neutrophils # (A) 7.4 k/uL (1.3-7.7); Neutrophils % (A) 66 %; Platelet Count 242 k/uL (150-450); RBC 4.67 m/uL (3.80-5.40); RDW 13.1 % (11.5-15.5); WBC 11.2 k/uL (3.8-10.6)
[2018-10-18 13:06] LABS: Albumin 4.3 g/dL (3.5-5.0); Calcium 10.5 mg/dL (8.4-10.2); Magnesium 2.1 mg/dL (1.6-2.3); Potassium 5.1 mmol/L (3.5-5.1); Total Bilirubin 0.8 mg/dL (0.2-1.3); Total Protein 6.6 g/dL (6.3-8.2)
--- NOTE | 2018-10-18 13:20 | XR ---
EXAMINATION TYPE: XR chest 2V DATE OF EXAM: 10/18/2018 COMPARISON: 02/01/2018 TECHNIQUE: PA and lateral views submitted. HISTORY: Dysrhythmia FINDINGS: The lungs are clear and there is no pneumothorax, pleural effusion, or focal pneumonia. No overt fa ilure. Arthropathy of the shoulder with diffuse osteopenia. Hypertrophic change of the spine. Mild hy perinflation. IMPRESSION: 1. No acute process.
[2018-10-18 13:24] LABS: Partial Thromboplastin Time 23.3 sec (22.0-30.0); Prothrombin Time 10.6 sec (9.0-12.0)
[2018-10-18 14:10] LABS: T4, Free (Free Thyroxine) 1.51 ng/dL (0.78-2.19)
[2018-10-18 15:31] VITALS: BP 108/89; PULSE 82
== END 2018-10-18 15:32 | disposition home or self-care (01) ==
LOC: EC 12:31
DX: I48.91 Unspecified atrial fibrillation (principal); R55 Syncope and collapse; R42 Dizziness and giddiness; E89.0 Postprocedural hypothyroidism; Z85.850 Personal history of malignant neoplasm of thyroid; Z87.891 Personal history of nicotine dependence; Z96.652 Presence of left artificial knee joint; Z79.82 Long term (current) use of aspirin; Z79.890 Hormone replacement therapy; Z79.899 Other long term (current) drug therapy
CPT/HCPCS: 36415; 71046; 80053; 83735; 84439; 84443; 84484; 85025; 85610; 85730; 93005; 96360; 99284

== ENCOUNTER 2018-12-29 07:31 | Emergency (ER) | payer MEDICARE ==
[2018-12-29 07:36] VITALS: RESP 18; TEMP 98.5
[2018-12-29 08:04] LABS: Basophils % (A) 1 %; Eosinophils # (A) 0.1 k/uL (0-0.7); Eosinophils % (A) 2 %; Lymphocytes # (A) 1.7 k/uL (1.0-4.8); Lymphocytes % (A) 24 %; MCH 29.2 pg (25.0-35.0); MCHC 34.2 g/dL (31.0-37.0); MCV 85.3 fL (80.0-100.0); Mean Platelet Volume 7.4; Monocytes # (A) 0.4 k/uL (0-1.0); Monocytes % (A) 6 %; Neutrophils # (A) 4.8 k/uL (1.3-7.7); Neutrophils % (A) 66 %; Platelet Count 252 k/uL (150-450); RDW 12.7 % (11.5-15.5); WBC 7.3 k/uL (3.8-10.6)
--- NOTE | 2018-12-29 08:07 | ED ---
General Adult HPI - General Chief complaint: Arrhythmia/Palpitations Stated complaint: afib Time Seen by Provider: 12/29/18 07:36 Source: patient, RN notes reviewed, old records reviewed Mode of arrival: ambulatory Limitations: no limitations - History of Present Illness Initial comments: 63 female presenting for evaluation of palpitations and mild chest fullness no chest pain. Symptoms were present for the past 12 hours. Her symptoms did resolve just prior to arrival. She has history of atrial fibrillation, she is currently anticoagulated with Eliquis. She states that she has intermittent episodes similar to this. No known history of coronary artery disease, states she had heart catheterization within the past year which she was told was n ormal. She is not on beta silvio or calcium channel silvio secondary to low resting heart rate. She is asymptomatic at the time my evaluation. Denies vomiting or diarrhea. Denies abdominal pain. - Related Data Home Medications Medication Instructions Recorded Confirmed Aspirin 81 mg PO DAILY@1500 09/09/16 10/18/18 Levothyroxine Sodium [Synthroid] 112 mcg PO DAILY 09/09/16 10/18/18 Atorvastatin [Lipitor] 40 mg PO HS 10/18/18 10/18/18 Carvedilol [Coreg] 25 mg PO ONCE PRN 10/18/18 10/18/18 Lisinopril [Zestril] 5 mg PO DAILY 10/18/18 10/18/18 Propafenone [Rythmol] 300 mg PO DAILY PRN 10/18/18 10/18/18 Previous Rx's Medication Instructions Recorded Apixaban [Eliquis] 5 mg PO BID #60 tab 02/03/18 Allergies Allergy/AdvReac Type Severity Reaction Status Date / Time No Known Allergies Allergy Verified 10/18/18 13:18 Review of Systems ROS Statement: Those systems with pertinent positive or pertinent negative responses have been documented in the HPI. ROS Other: All systems not noted in ROS Statement are negative. Past Medical History Past Medical History: Atrial Fibrillation, Cancer, Chest Pain / Angina, Thyroid Disorder Additional Past Medical History / Comment(s): hx. thyroid cancer 2010-had radiation after surgery, see Dr Nelson H & P History of Any Multi-Drug Resistant Organisms: None Reported Past Surgical History: Hysterectomy, Joint Replacement, Orthopedic Surgery, T onsillectomy Additional Past Surgical History / Comment(s): thyroidectomy, left knee replaced, left wrist ORIF Past Anesthesia/Blood Transfusion Reactions: No Reported Reaction Past Psychological History: No Psychological Hx Reported Smoking Status: Former smoker Past Alcohol Use History: None Reported Past Drug Use History: None Reported - Past Family History Mother Family Medical History: Cancer Additional Family Medical History / Comment(s): Mother had breast/brain/bone cancer. Father Family Medical History: Cancer Additional Family Medical History / Comment(s): Father had rectal, lung and esophageal cancer. General Exam Limitations: no limitations General appearance: alert, in no apparent distress Head exam: Present: atraumatic, normocephalic Eye exam: Present: normal appearance, PERRL ENT exam: Present: normal exam Neck exam: Present: normal inspection. Absent: tenderness, meningismus Respiratory exam: Present: normal lung sounds bilaterally. Absent: respiratory distress, wheezes Cardiovascular Exam: Present: regular rate, normal rhythm GI/Abdominal exam: Present: soft. Absent: distended, tenderness, guarding Extremities exam: Present: normal inspection, normal capillary refill. Absent: pedal edema Back exam: Present: normal inspection Neurological exam: Present: alert, oriented X3, CN II-XII intact. Absent: motor sensory deficit Psychiatric exam: Present: normal affect, normal mood Skin exam: Present: warm, dry, intact. Absent: cyanosis, diaphoretic Course Vital Signs 12/29/18 07:32 Temperature 98.5 F Pulse Rate 89 Respiratory 18 Rate Blood Pressure 137/77 O2 Sat by Pulse 97 Oximetry EKG Findings - EKG Comments: EKG Findings:: EKG: Normal sinus rhythm, rate of 80, VT interval 140, QRS duration 90, QTC [address] segment elevation, T waves are upright. Medical Decision Making - Medical Decision Making 63-year-old female with palpitations, history of atrial fibrillation. Patient symptoms resolved and feels that she can converted just at the time of arrival. Initial EKG is normal sinus rhythm. She maintains sinus rhythm on the monitor throughout her stay in the emergency department. She has normal CBC, normal brennen ctrolytes, she had duration of symptoms for approximately 12 hours prior to arrival and troponin is negative this is reassuring. She does have mild transaminitis and elevated alkaline phosphatase. She has no vomiting, no fever, no abdominal pain. I did reexamine the abdomen and there is no focal tenderness. She feels fine at the time of reevaluation. Chem be discharged with close outpatient follow-up. She will have discussion with her manager enrollment whether she should initiate beta silvio. - Lab Data Result diagrams: 12/29/18 07:52 12/29/18 07:52 Lab Results 12/29/18 12/29/18 12/29/18 Range/Units 07:52 07:52 07:52 WBC 7.3 (3.8-10.6) k/uL RBC 4.80 (3.80-5.40) m/uL Hgb 14.0 (11.4-16.0) gm/dL Hct 41.0 (34.0-46.0) % MCV 85.3 (80.0-100.0) fL MCH 29.2 (25.0-35.0) pg MCHC 34.2 (31.0-37.0) g/dL RDW 12.7 (11.5-15.5) % Plt Count 252 (150-450) k/uL Neutrophils % 66 % Lymphocytes % 24 % Monocytes % 6 % Eosinophils % 2 % Basophils % 1 % Neutrophils # 4.8 (1.3-7.7) k/uL Lymphocytes # 1.7 (1.0-4.8) k/uL Monocytes # 0.4 (0-1.0) k/uL Eosinophils # 0.1 (0-0.7) k/uL Basophils # 0.0 (0-0.2) k/uL PT 10.3 (9.0-12.0) sec INR 1.0 (<1.2) APTT 29.5 (22.0-30.0) sec Sodium 139 (137-145) mmol/L Potassium 4.3 (3.5-5.1) mmol/L Chloride 111 H (98-107) mmol/L Carbon Dioxide 21 L (22-30) mmol/L Anion Gap 7 mmol/L BUN 17 (7-17) mg/dL Creatinine 0.54 (0.52-1.04) mg/dL Est GFR (CKD-EPI)AfAm >90 (>60 ml/min/1.73 sqM) Est GFR (CKD-EPI)NonAf >90 (>60 ml/min/1.73 sqM) Glucose 178 H (74-99) mg/dL Calcium 10.6 H (8.4-10.2) mg/dL Magnesium 2.0 (1.6-2.3) mg/dL Total Bilirubin 0.8 (0.2-1.3) mg/dL AST 38 H (14-36) U/L ALT 72 H (9-52) U/L Alkaline Phosphatase 146 H (38-126) U/L Total Protein 6.8 (6.3-8.2) g/dL Albumin 4.3 (3.5-5.0) g/dL Disposition Clinical Impression: Afib, Palpitations Disposition: HOME SELF-CARE Condition: Good Instructions (If sedation given, give patient instructions): Heart Palpitations (ED), A-fib (Atrial Fibrillation) (ED) Is patient prescribed a controlled substance at d/c from ED?: No Referrals: Mohan Macario MD [Primary Care Provider] - 1-2 days Hannah Nelson MD [STAFF PHYSICIAN] - 1-2 days Time of Disposition: 08:36
[2018-12-29 08:15] LABS: ALT 72 U/L (9-52); AST 38 U/L (14-36); Albumin 4.3 g/dL (3.5-5.0); Alkaline Phosphatase 146 U/L (38-126); Anion Gap 7 mmol/L; Blood Urea Nitrogen 17 mg/dL (7-17); Calcium 10.6 mg/dL (8.4-10.2); Carbon Dioxide 21 mmol/L (22-30); Chloride 111 mmol/L (98-107); Glucose 178 mg/dL (74-99); Potassium 4.3 mmol/L (3.5-5.1); Sodium 139 mmol/L (137-145); Total Bilirubin 0.8 mg/dL (0.2-1.3); Total Protein 6.8 g/dL (6.3-8.2)
[2018-12-29 08:17] LABS: Partial Thromboplastin Time 29.5 sec (22.0-30.0); Prothrombin Time 10.3 sec (9.0-12.0)
[2018-12-29 08:34] VITALS: BP 117/71; PULSE 75
== END 2018-12-29 08:45 | disposition home or self-care (01) ==
LOC: EC 07:31
DX: I48.91 Unspecified atrial fibrillation (principal); R74.0 Nonspecific elevation of levels of transaminase and lactic acid dehydrogenase [LDH]; R74.8 Abnormal levels of other serum enzymes; E89.0 Postprocedural hypothyroidism; Z87.891 Personal history of nicotine dependence; Z79.01 Long term (current) use of anticoagulants; Z79.82 Long term (current) use of aspirin; Z79.890 Hormone replacement therapy; Z79.899 Other long term (current) drug therapy; Z85.850 Personal history of malignant neoplasm of thyroid; Z92.3 Personal history of irradiation; Z95.818 Presence of other cardiac implants and grafts; Z96.652 Presence of left artificial knee joint
CPT/HCPCS: 36415; 80053; 83735; 84484; 85025; 85610; 85730; 93005; 99285

== ENCOUNTER → 2019-05-23 | Outpatient (CLI) | payer MEDICARE ==
--- NOTE | 2019-05-24 14:56 | MM ---
Reason for exam: screening (asymptomatic). Last mammogram was performed 1 year and 2 months ago. History: Patient is postmenopausal, has history of other cancer at age 55, and is nulliparous. Family history of breast cancer in mother at age 63. 2 excisional biopsies of the right breast. Physical Findings: A clinical breast exam by your physician is recommended on an annual basis and results should be correlated with mammographic findings. MG Screening Mammo w CAD Bilateral CC and MLO view(s) were taken. Prior study comparison: March 21, 2018, bilateral MG screening mammo w CAD. March 18, 2017, bilateral MG screening mammo w CAD. The breast tissue is heterogeneously dense. This may lower the sensitivity of mammography. No suspicious abnormality on the left. Upper inner quadrant right focal asymmetry at middle depth. ASSESSMENT: Incomplete: need additional imaging evaluation, BI-RAD 0 RECOMMENDATION: Special view mammogram of the right breast. If lesion persists on supplemental views, image directed ultrasound is recommended. [facility] will attempt to contact patient to return for supplemental views and ultrasound if indicated.
== END | disposition home or self-care (01) ==
LOC: RADMAMWWP 09:31
PROVIDERS: ATTEND Family Medicine
DX: Z12.31 Encounter for screening mammogram for malignant neoplasm of breast (principal); Z80.3 Family history of malignant neoplasm of breast
CPT/HCPCS: 77067

== ENCOUNTER → 2019-05-29 | Outpatient (CLI) | payer MEDICARE ==
--- NOTE | 2019-05-30 08:14 | MM ---
Reason for exam: additional evaluation requested from abnormal screening. Last mammogram was performed less than 1 month ago. History: Patient is postmenopausal, has history of other cancer at age 55, and is nulliparous. Family history of breast cancer in mother at age 63. 2 excisional biopsies of the right breast. Physical Findings: Nurse did not find any significant physical abnormalities on exam. MG Work Up Mamm w CAD RT Spot compression CC, spot compression MLO, and LM view(s) were taken of the right breast. Prior study comparison: May 23, 2019, bilateral MG screening mammo w CAD. March 21, 2018, bilateral MG screening mammo w CAD. The breast tissue is heterogeneously dense. This may lower the sensitivity of mammography. The previously seen abnormality resolves on additional views and appears as fibroglandular tissue compatible with summation. Prior excisional biopsy on the right. These results were verbally communicated with the patient and result sheet given to the patient on 05/29/19. ASSESSMENT: Benign, BI-RAD 2 RECOMMENDATION: Return to routine screening mammogram schedule for both breasts.
== END | disposition home or self-care (01) ==
LOC: RADMAMWWP 14:56
PROVIDERS: ATTEND Family Medicine
DX: R92.8 Other abnormal and inconclusive findings on diagnostic imaging of breast (principal)
CPT/HCPCS: 77065

== ENCOUNTER → 2019-10-10 | Outpatient (CLI) | payer MEDICARE ==
[2019-10-10 12:31] LABS: African American GFR (CKD) >90 (>60 ml/min/1.73 sqM); Blood Urea Nitrogen 14 mg/dL (7-17); Non-African American GFR(CKD) >90 (>60 ml/min/1.73 sqM)
--- NOTE | 2019-10-10 15:46 | CT ---
EXAMINATION TYPE: CT abdomen pelvis w con DATE OF EXAM: 10/10/2019 HISTORY: Left lower quadrant pain x 3 weeks. History of ovarian varices. CT DLP: 506.8mGycm Automated Exposure Control for Dose Reduction was Utilized. CONTRAST: CT scan of the abdomen and pelvis is performed with IV Contrast, patient injected with 100 mL of Isov ue M300. COMPARISON: CT abdomen and pelvis April 01, 2011 FINDINGS: LUNG BASES: No significant abnormality is appreciated. LIVER/GB: No significant abnormality is appreciated. PANCREAS: No significant abnormality is seen. SPLEEN: No significant abnormality is seen. ADRENALS: No significant abnormality is seen. KIDNEYS: No significant abnormality is seen. BOWEL: Oral contrast reaches level of the mid transverse colon. There is no suspicious small or large bowel dilatation. Normal-appearing appendix is seen from the cecum posteriorly in the right upper pe lvis. Mild to moderate prominence of colonic fecal material greatest in the transverse colon noted. UTERUS/ADNEXA: Uterus surgically absent or markedly atrophic. Remnant left ovary not enlarged in the pelvis axial image 72. Persistent asymmetric prominence of the draining left ovarian veins unchanged from prior study. LYMPH NODES: No greater than 1cm abdominal or pelvic lymph nodes are appreciated. OSSEOUS STRUCTURES: Prominent Schmorl node superior L3 endplate now identified. There is mild height loss with old fracture deformity of the L1 vertebra along posterior superior aspect. Focal disc space narrowing affecting this phenomenon and endplate sclerosis anterior T11-T12 level. Moderate narrowin g of both hip joints with [id number] spurring. OTHER: Stable right pelvic phlebolith. IMPRESSION: Possible left-sided pelvic congestion syndrome without significant interval change. Overa ll nonobstructive bowel gas pattern. Aono-ga-anqqilag diffuse colonic fecal stasis is felt present.
== END | disposition home or self-care (01) ==
LOC: RADCTMAIN 12:02
PROVIDERS: ATTEND Family Medicine
DX: R10.32 Left lower quadrant pain (principal); I86.2 Pelvic varices
CPT/HCPCS: 82565; 84520; 74177; Q9967 ×2

== ENCOUNTER → 2020-07-08 | Outpatient (CLI) | payer MEDICARE ==
--- NOTE | 2020-07-09 13:35 | MM ---
Reason for exam: screening (asymptomatic). Last mammogram was performed 1 year and 1 month ago. History: Patient is postmenopausal, has history of other cancer at age 55, and is nulliparous. Family history of breast cancer in mother at age 63. 2 excisional biopsies of the right breast. Physical Findings: A clinical breast exam by your physician is recommended on an annual basis and results should be correlated with mammographic findings. MG 3D Screening Mammo W/Cad Bilateral CC and MLO view(s) were taken. Prior study comparison: May 29, 2019, right breast MG work up mamm w CAD RT. May 23, 2019, bilateral MG screening mammo w CAD. The breast tissue is heterogeneously dense. This may lower the sensitivity of mammography. No significant changes when compared with prior studies. ASSESSMENT: Negative, BI-RAD 1 RECOMMENDATION: Routine screening mammogram of both breasts in 1 year.
== END | disposition home or self-care (01) ==
LOC: RADMAMWWP 15:42
PROVIDERS: ATTEND Family Medicine
DX: Z12.31 Encounter for screening mammogram for malignant neoplasm of breast (principal); Z80.3 Family history of malignant neoplasm of breast
CPT/HCPCS: 77063; 77067

== ENCOUNTER → 2021-07-16 | Outpatient (CLI) | payer MEDICARE ==
--- NOTE | 2021-07-16 08:48 | BD ---
EXAMINATION TYPE: Axial Bone Density DATE OF EXAM: 07/16/2021 COMPARISON: NONE CLINICAL HISTORY: 66 YR OLD FEMALE....ICD-10 CODE: Z78.0 MENOPAUSAL Height: 65.3 Weight: 147 FRAX RISK QUESTIONS: History of Fracture in Adulthood: YES Secondary Osteoporosis: YES 1. Type 1 Diabetes: 2. Hyperthyroidism: YES, REMOVAL RISK FACTORS HISTORY OF: HX RT ELBOW, RT TIBIAL PLATEAU, RT LOWER LEG, AN ADULT History of Wrist Fracture: LT WRIST AN ADULT Family History of Osteoporosis: YES, HER MOTHER Postmenopausal woman: YES, AT ABOUT 52 YRS Hyperparathyroidism: YES, REMOVAL ALONG WITH THYROID Adrenal Insufficiency: NO MEDICATIONS: Thyroid Medications: YES, SYNTHROID, FOR ABOUT 25 YRS Additional Medications: BP MEDS, HX OF RADIATION TREATMENTS, METFORMIN, STATIN FOR CHOLESTEROL, CITRI ROSALIA WITH D Additional History: HYPERTENSION, THYROID CANCER, DIABETES, CHOLESTEROL. EXAM MEASUREMENTS: Bone mineral densitometry was performed using the [employer] System. Bone mineral density as measured about the Lumbar spine is: ----- L1-L4(G/cm2): 1.109 T Score Values are as follows: ----- L1: -0.7 ----- L2: -0.8 ----- L3: -0.1 ----- L4: -0.9 ----- L1-L4: -0.6 Bone mineral density FIRST DEXA AT [facility] Bone mineral density about the R hip (g/cm2): 0.767 Bone mineral density about the L hip (g/cm2): 0.766 T Score values are as follows: -----R Neck: -1.5 -----L Neck: -1.6 -----R Total: -1.9 -----L Total: -1.9 Bone mineral density FIRST DEXA STUDY AT [facility] FRAX%s: THERE IS A 15.9% CHANCE FOR A MAJOR OSTEOPOROTIC FX AND A 2.2% FOR HIPS......PROBABILITY FOR FX IN 10 YRS TIME IMPRESSION: Osteopenia NOTE: T-SCORE=SD OF THE YOUNG ADULT MEAN.
== END | disposition home or self-care (01) ==
LOC: RADBDWWP 07:08
PROVIDERS: ATTEND Family Medicine
DX: M85.89 Other specified disorders of bone density and structure, multiple sites (principal); Z78.0 Asymptomatic menopausal state
CPT/HCPCS: 77080

== ENCOUNTER → 2022-08-25 | Outpatient (CLI) | payer MEDICARE ==
--- NOTE | 2022-08-26 09:22 | MM ---
Reason for Exam: Screening (asymptomatic). Last screening mammogram was performed 12 month(s) ago. Patient History: Menarche at age 10. Patient has no children. Hysterectomy at age 31. Postmenopausal. Other cancer, age 55. Excisional Biopsy on the Right side. Excisional Biopsy on the Right side. Mother had breast cancer, age 63. Risk Values: Ana 5 year model risk: 5.0%. NCI Lifetime model risk: 14.9%. Prior Study Comparison: 03/18/2017 Bilateral Screening Mammogram, [facility]. 03/21/2018 Bilateral Screening Mammogram, [facility]. 05/23/2019 Bilateral Screening Mammogram, [facility]. 05/29/2019 Right Diagnostic Mammogram, [facility]. 07/08/2020 Bilateral Screening Mammogram, [facility]. 08/24/2021 Bilateral Screening Mammogram, [facility]. Tissue Density: The breast tissue is heterogeneously dense. This may lower the sensitivity of mammography. Findings: Analyzed By CAD. There is no suspicious group of microcalcifications or new suspicious mass in either breast. Overall Assessment: Negative, BI-RAD 1 Management: Screening Mammogram of both breasts in 1 year. A clinical breast exam by your physician is recommended on an annual basis and results should be correlated with mammographic findings. [facility] will attempt to contact patient to return for supplemental views and ultrasound if indicated. Electronically signed and approved by: John Pedersen DO
== END | disposition home or self-care (01) ==
LOC: RADMAMWWP 09:01
PROVIDERS: ATTEND Family Medicine
DX: Z12.31 Encounter for screening mammogram for malignant neoplasm of breast (principal); Z78.0 Asymptomatic menopausal state; Z80.3 Family history of malignant neoplasm of breast; Z98.890 Other specified postprocedural states
CPT/HCPCS: 77063; 77067

== ENCOUNTER → 2023-09-16 | Outpatient (CLI) | payer MEDICARE ==
--- NOTE | 2023-09-19 19:30 | MM ---
Reason for Exam: Screening (asymptomatic). Last mammogram was performed 1 year(s) and 1 month(s) ago. Patient History: Menarche at age 10. Patient has no children. Hysterectomy at age 31. Postmenopausal. Other cancer, age 55. Excisional Biopsy on the Right side. Excisional Biopsy on the Right side. Mother had breast cancer, age 63. Risk Values: Ana 5 year model risk: 5.1%. NCI Lifetime model risk: 14.2%. Prior Study Comparison: 07/08/2020 Bilateral Screening Mammogram, [facility]. 08/24/2021 Bilateral Screening Mammogram, [facility]. 08/25/2022 Bilateral MG 3D screening mammo w/cad, [facility]. Tissue Density: The breast tissue is heterogeneously dense. This may lower the sensitivity of mammography. Findings: Analyzed By CAD. There is no suspicious group of microcalcifications or new suspicious mass in either breast. Overall Assessment: Negative, BI-RAD 1 Management: Screening Mammogram of both breasts in 1 year. See note below in regards to patient's increased 5 year Ana score . Patient should continue monthly self-breast exams. A clinical breast exam by your physician is recommended on an annual basis. This exam should not preclude additional follow-up of suspicious palpable abnormalities. Note on Ana scores and lifetime risk: 1. A Ana score greater than 3% is considered moderate risk. If this is the case, consider specialist referral to assess eligibility for a risk reducing agent. 2. If overall lifetime risk for the development of breast cancer is 20% or higher, the patient may qualify for future screening with alternating mammogram and breast MRI. Electronically signed and approved by: Cedrick Gomez M.D. Radiologist
== END | disposition home or self-care (01) ==
LOC: RADMAMWWP 07:14
PROVIDERS: ATTEND Family Medicine
DX: Z12.31 Encounter for screening mammogram for malignant neoplasm of breast (principal); Z80.3 Family history of malignant neoplasm of breast; Z78.0 Asymptomatic menopausal state
CPT/HCPCS: 77063; 77067

== ENCOUNTER → 2024-12-20 | Outpatient (CLI) | payer MEDICARE ==
--- NOTE | 2024-12-20 15:32 | MM ---
Reason for Exam: Screening (asymptomatic). Last mammogram was performed 1 year(s) and 3 month(s) ago. Patient History: Menarche at age 10. Patient has no children. Hysterectomy at age 31. Postmenopausal. Other cancer, age 55. Hormonal Contraceptives, from age 18 until age 31. Excisional Biopsy on the Right side. Excisional Biopsy on the Right side. Mother had breast cancer, age 63. Risk Values: Ana 5 year model risk: 5.1%. NCI Lifetime model risk: 13.6%. Prior Study Comparison: 08/24/2021 Bilateral Screening Mammogram, [facility]. 08/25/2022 Bilateral MG 3D screening mammo w/cad, [facility]. 09/16/2023 Bilateral MG 3D screening mammo w/cad, [facility]. Tissue Density: The breasts are heterogeneously dense, which may obscure small masses. Findings: Analyzed By CAD. There is no suspicious group of microcalcifications or new suspicious mass in either breast. Overall Assessment: Negative, BI-RAD 1 Management: Screening Mammogram of both breasts in 1 year. . Patient should continue monthly self-breast exams. A clinical breast exam by your physician is recommended on an annual basis. This exam should not preclude additional follow-up of suspicious palpable abnormalities. Note on Ana scores and lifetime risk: 1. A Ana score greater than 3% is considered moderate risk. If this is the case, consider specialist referral to assess eligibility for a risk reducing agent. 2. If overall lifetime risk for the development of breast cancer is 20% or higher, the patient may qualify for future screening with alternating mammogram and breast MRI. [facility], , 12/20/2024 3:29 PM. Electronically signed and approved by: Efren Miller M.D.
--- NOTE | 2024-12-20 21:35 | BD ---
EXAMINATION TYPE: Axial Bone Density DATE OF EXAM: 12/20/2024 CLINICAL HISTORY: 69 years old Female. ICD-10 CODE: Z78.0 POSTMENOPAUSAL , Additional History: Height: 66 Weight: 145.4 FRAX RISK QUESTIONS: Alcohol (3 or more units per day): no Family History (Parent hip fracture): no Glucocorticoids (More than 3mos): no (Ex: prednisone, prednisolone, methylprednisolone, dexamethasone, and hydrocortisone). History of Fracture in Adulthood: yes Secondary Osteoporosis: 1. Type 1 Diabetes: no 2. Hyperthyroidism: no 3. Menopause before 45: no 4. Malnutrition: no 5. Chronic liver disease: no Rheumatoid Arthritis: no Current Tobacco Use: no RISK FACTORS HISTORY OF: History of Wrist Fracture: left When: as an adult Surgery to Spine/Hip(right/left)/Wrist (right/left): no MEDICATIONS: Thyroid Medications: levothyroxine How Lon+ years EXAM MEASUREMENTS: Bone mineral densitometry was performed using the [employer] System. Bone mineral density as measured about the Lumbar spine is: ----- L1-L4(G/cm2): 1.143 T Score Values are as follows: ----- L1: -1.2 ----- L2: -0.2 ----- L3: 0.0 ----- L4: -0.4 ----- L1-L4: -0.3 Z Score Values are as follows: ----- L1: 0.4 ----- L2: 1.5 ----- L3: 1.7 ----- L4: 1.3 ----- L1-L4: 1.4 Bone mineral density has: increased 3.1 % since study of: 07.16.2021 Bone mineral density about the R hip (g/cm2): 0.745 Bone mineral density about the L hip (g/cm2): 0.733 T Score values are as follows: -----R Neck: -1.9 -----L Neck: -1.9 -----R Total: -2.1 -----L Total: -2.2 Z Score values are as follows: -----R Neck: -0.1 -----L Neck: -0.2 -----R Total: -0.6 -----L Total: -0.7 Bone mineral density has: decreased -3.7 % since study of: 12.9.2020 FRAX%s: The graph provided illustrates a 18.2% chance for a major osteoporotic fx and a 3.7% chance f or the hips probability for fx in 10 years time. IMPRESSION: Osteopenia (T Score between -2.5 and -1). There is slightly increased risk of fracture and the patient may be considered for treatment. Re-Screen 2-5 years. NOTE: T-SCORE=SD OF THE YOUNG ADULT MEAN. [facility], Workstation: [email or web address], 12/20/2024 9:32 PM
== END | disposition home or self-care (01) ==
LOC: RADMAMWWP 14:55
PROVIDERS: ATTEND Family Medicine
DX: Z12.31 Encounter for screening mammogram for malignant neoplasm of breast (principal); M85.89 Other specified disorders of bone density and structure, multiple sites; R92.333 Mammographic heterogeneous density, bilateral breasts; Z80.3 Family history of malignant neoplasm of breast; Z92.0 Personal history of contraception; Z78.0 Asymptomatic menopausal state
CPT/HCPCS: 77063; 77067; 77080